=== PATIENT | male | born 2000 | race African-American/Black ===

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

== ENCOUNTER 2018-03-04 09:30 | Emergency (ER) | payer SELFPAY ==
[2018-03-04] MEDS ORDERED: Ketorolac Tromethamine 60 MG/2 ML VIAL ONE (10:37)
--- NOTE | 2018-03-04 10:59 | RAD ---
LEFT WRIST THREE VIEWS: HISTORY: Injury. COMPARISON: None. FINDINGS: There is mild positive ulnar variance. No acute fracture or malalignment. The soft tissues are unremarkable. IMPRESSION: No acute abnormality. POS: [facility]
== END 2018-03-04 11:04 | disposition home or self-care (01) ==
LOC: ERS 09:30
DX: M77.9 Enthesopathy, unspecified (principal); J45.909 Unspecified asthma, uncomplicated
CPT/HCPCS: 96374; J1885

== ENCOUNTER 2018-04-12 18:07 | Emergency (ER) | payer SELFPAY | END 2018-04-12 19:00 | disposition home or self-care (01) | LOC: ERS 18:07 | DX: R19.7 Diarrhea, unspecified (principal); R11.0 Nausea; J45.909 Unspecified asthma, uncomplicated | CPT/HCPCS: 99283 ==

== ENCOUNTER 2024-01-21 09:36 | Emergency (ER) | payer SELFPAY ==
[2024-01-21] MEDS ORDERED: Ondansetron PF 4 MG/2 ML Vial ONE (10:01)
== END 2024-01-21 11:08 | disposition home or self-care (01) ==
LOC: ERS 09:36
DX: A08.4 Viral intestinal infection, unspecified (principal)
CPT/HCPCS: 96361; 96374; J2405